=== PATIENT | female | born 1960 | race Caucasian/White ===

== ENCOUNTER 2018-04-24 01:05 | Observation (INO) ==
--- NOTE | 2018-04-24 01:35 | ERNOTE ---
Neuro HPI ER Record Presenting Symptoms: other - unresponsiveness Time Seen by Provider: 04/24/18 01:05 Source: EMS Exam Limitations: clinical condition Immunizations: IMMUNIZATION HX History of Influenza Vaccine More Information Required Hx Pneumococcal Vaccination More Information Required Allergies/Adverse Reactions: Allergies Allergy/AdvReac Type Severity Reaction Status Date / Time ibuprofen [From Advil] Allergy Verified 12/17/15 00:00 Penicillins Allergy Verified 12/17/15 00:00 Home Medications: HOME MEDICATIONS NK [No Home Medication] 03/29/15 [Last Taken Unknown] - History of Present Illness Narrative: Pt arrived by EMS with posturing and unresponsiveness. last seen normal 16:00 yesterday. Upon arrival pt was in somewhat of a position but I do not think it is posturing. She opens her eyes to verbal stimuli and will track visually but does not follow any commands. Onset: sudden onset, >3 hours - Character of Deficits Baseline Cognition: Present: alert, oriented x 4 Baseline Gait: Present: walks w/o assistance Associated Symptoms: Reports: altered mental status Review of Systems - Narrative Narrative: ROS unavailable due to pt's decreased mental status. She did deny pain by shaking her head. Medical History (Last Reviewed 04/24/18 @ 07:18 by Jorgito Milan DO) unknown past medical hx d/t condition Surgical History: Surgical History (Last Reviewed 04/24/18 @ 07:18 by Jorgito Milan DO) unknown past surgical hx d/t condition Family History: Family History (Last Reviewed 04/24/18 @ 07:18 by Jorgito Milan DO) Other Family history unobtainable Social History: Preferred Language Stateless Abuse History No History of abuse Psych History Hx of Suicide Attempt No Social History Section defined Physical Exam - Physical Exam General Appearance: Present: wd/wn, no apparent distress Head Exam: Present: normal inspection, no evidence of injury Eye Exam: Normal inspection: bilateral, PERRL: bilateral - left pupil is somewhat larger than the right but both are reactive, EOMI: bilateral - Pt does track visually but does not follow commands well Ears, Nose, Throat: Present: normal ENT inspection Neck: Present: normal inspection, nontender, supple Respiratory: Present: no respiratory distress, no accessory muscle use Cardiovascular/Chest: Present: tachycardia - mild 103 Gastrointestinal/Abdominal: Present: normal bowel sounds, nondistended, soft. Absent: guarding, rebound Extremity Exam: Present: no edema - very thin Neurological Exam: Present: other - unable to test due to pt not following commands Skin Exam: Present: normal color, warm/dry Lymphatic Exam: Present: no adenopathy [place] Coma Scale - Assess Eye Opening: To Voice Motor: Localizes to Pain Verbal: None - Total Coma Scale Total: 9 Progress - Results and Orders Patient's Lab Results:: I have reviewed the patient's lab results. - Vital Signs Patient's Vital Signs:: I have reviewed the patient's vital signs. - EKG EKG #1 EKG: NSR, premature ventricular contraction EKG read: Interp. by me - X-Ray X-Ray #1 X-Ray: chest Interpretation: Interp. by me X-ray Comments: no infiltrate or effusion, no pneumothorax - CT/Ultrasound CT/Ultrasound Narrative: CT Head, No acute intracranial change. - Progress/Reassessment Progress:: Improved Progress Note-Subjective: 04/24/18 03:13 reexamined the patient. She is still very lethargic but shakes her head when asked if she has pain. She did move her tongue in the midline when asked to stick it out but only got it just past her teeth. She did not firewood cutter my fingers with either hand. 04/24/18 07:[address] Dewitt around 05:20 she agreed with observation admission. Departure Clinical Impression: Acute alteration in mental status, Hyponatremia, Alcoholism - Departure Disposition: Still a patient Condition: Serious
[2018-04-24 01:42] LABS: Hematocrit 37.7 % (37.0-47.0); Hemoglobin 12.4 gm/dL (12.5-16.0); Mean Cell Volume 93.1 fl (78-100); Mean Corpuscular Hemoglobin 30.6 pg (27-31); Mean Corpuscular Hgb Conc 32.9 g/dl (32-36); Mean Platelet Volume 8.7 fl (8-12.5); Neutrophil # 2.6 K/mm3 (1.3-6.0); Neutrophil % 38.7 % (42-75.0); Platelet Count 322 K/mm3 (150-450); Red Blood Count 4.05 M/mm3 (4.2-5.4); Red Cell Distribution Width 15.5 % (11.5-14.0); White Blood Count 6.6 K/mm3 (4.0-10.5)
[2018-04-24 01:58] LABS: ALT 18 U/L (19-67); AST 26 U/L (0-48); Albumin * 3.9 gm/dl (3.4-5.0); Alkaline Phosphatase * 59 U/L (50-170); Anion Gap 15.3 mmol/L (6.8-13.8); BUN/Creatinine Ratio 15.7 (9.0-21.6); Bilirubin, Total 0.2 mg/dL (0.0-1.1); Blood Urea Nitrogen 17 mg/dL (3-23); Ca. Corrected For Albumin 8.6 mg/dL (8.4-10.2); Calcium * 8.8 mg/dL (7.9-10.9); Carbon Dioxide 25.3 mmol/L (24-32.6); Chloride 90 mmol/L (97-106); Glucose * 192 mg/dL (70-110); Potassium 3.6 mmol/L (3.4-4.6); Sodium 127 mmol/L (132-142); Total Protein 6.9 gm/dL (6.2-8.2)
[2018-04-24 02:36] LABS: Salicylate Less than 2.8 mg/dL (2.8-20.0)
[2018-04-24 03:17] LABS: Urine Bilirubin Negative (NEGATIVE); Urine Blood 50 /ul (NEGATIVE); Urine Ketone Negative (NEGATIVE); Urine Nitrite Negative (NEGATIVE); Urine Protein Negative (NEGATIVE); Urine Urobilinogen Normal (NORMAL)
[2018-04-24 03:24] LABS: Urine Appearance Clear (CLEAR); Urine Bacteria TRACE; Urine Color Pale Yellow; Urine RBC TRACE /hpf (0-5); Urine WBC None Seen /hpf (0-5)
[2018-04-24 03:30] LABS: Cocaine Ur Negative (NEGATIVE); Urine Barbiturate Negative (NEGATIVE); Urine Benzodiazepines Negative (NEGATIVE); Urine Opiates Negative (NEGATIVE); Urine PCP Negative (NEGATIVE); Urine THC Negative (NEGATIVE)
[2018-04-24] MEDS ORDERED: MULTIVIT INFUSN,ADULT 4,VIT K 10 ML, THIAMINE HCL 100 MG in DEXTROSE 5 % IN WATER 1,000 ML IV SCH ×3 (04:30)
--- NOTE | 2018-04-24 10:54 | HP ---
Chief Complaint - Chief Complaint Date of Service: 04/24/18 Time of Service: 10:29 Chief Complaint: unresponsiveness History of Present Illness: Patient with no significant past medical history was brought to the ED by EMS for unresponsiveness. She was curled up in position and not arousable. She had some low sodium on admission, 127, but otherwise no significant electrolyte abnormalities. ETOH positive at 128. She had some tachycardia, but blood pressure and respiratory rate were normal. Her mentation did not improve during her stay in the ED, and she was admitted for observation. No definite consolidation on chest x-ray, nothing acute on head CT, and UA did not show signs of infection. At the time of my evaluation, she was awake and alert, oriented x3. She reports being under increased stress lately due to divorce and losing her job, and was drinking yesterday. She states she does not normally drink. She denies ingestion of any other drugs. She feels shaky, but denies any other symptoms. She would like to go home later this afternoon. Medical History (Last Updated 04/24/18 @ 08:17 by Sujatha Mcmanus RN) No pertinent past medical history No significant past surgical history unknown past medical hx d/t condition Surgical History: Surgical History (Last Reviewed 04/24/18 @ 07:18 by Jorgito Milan DO) unknown past surgical hx d/t condition Family History: Family History (Last Reviewed 04/24/18 @ 07:18 by Jorgito Milan DO) Other Family history unobtainable Social History: Patient Lives/Resources Home Utilized Occupation [employer] Preferred Language German Do you have any zoroastrian or No cultural preference? Smoking Status Current every day smoker Have you smoked in the past 12 Yes months Do you dip or chew tobacco No Abuse History No History of abuse Psych History Hx of Suicide Attempt No Social History Section defined Review Of Systems (GEN) - Review of Systems Generalized/Overall Review: Absent: Fever Respiratory: Absent: Cough Cardiac: Absent: Chest Pain, Edema Abdominal: Absent: Nausea, Vomiting, Diarrhea Genitourinary: Absent: Burning Skin: Present: No Symptoms Reported Immunizations: IMMUNIZATION HX Immunizations Up to Date unknown History of Influenza Vaccine More Information Required Hx Pneumococcal Vaccination More Information Required Allergies/Adverse Reactions: Allergies Allergy/AdvReac Type Severity Reaction Status Date / Time ibuprofen [From Advil] Allergy Verified 12/17/15 00:00 Penicillins Allergy Verified 12/17/15 00:00 Home Medications: HOME MEDICATIONS NK 04/24/18 [Last Taken Unknown] Exam - Exam Vital Signs: Vital Signs - Last Taken Temp 36.5 C 04/24/18 07:41 Pulse 97 04/24/18 08:10 Resp 14 04/24/18 07:41 BP 114/65 04/24/18 07:41 Pulse Ox 97 04/24/18 07:41 Constitutional: Present: Alert, Oriented x3, Cooperative, No distress ENT Exam: Present: dry mucous membranes Eye Exam: right eye: other - esotropia, baseline per patient Respiratory: Present: normal breath sounds, no respiratory distress Cardiovascular/Chest: Present: regular rate, rhythm Abdomen: Present: Normal bowel sounds, soft, nontender Extremity: Absent: lower extremity edema Eye contact: Present: cooperative, good eye contact Diagnostic Studies: Abnormal Lab Results 04/24/18 04/24/18 04/24/18 Range/Units 01:40 01:40 03:03 RBC 4.05 L (4.2-5.4) M/mm3 Hgb 12.4 L (12.5-16.0) gm/dL RDW 15.5 H (11.5-14.0) % Neutrophils % 38.7 L (42-75.0) % Lymphocytes % 52.4 H (20-51) % Sodium 127 L (132-142) mmol/L Plasma Sodium 128 L (130-142) mmol/L Chloride 90 L (97-106) mmol/L Anion Gap 15.3 H (6.8-13.8) mmol/L Est GFR (Non-Af Amer) 56 L D (60-130) mL/min Random Glucose 192 H (70-110) mg/dL ALT 18 L (19-67) U/L Urine Glucose (UA) 250 H (NEGATIVE) mg/dL Urine Blood 50 H (NEGATIVE) /ul Salicylates Less than 2.8 L (2.8-20.0) mg/dL Acetaminophen Less than 0.2 L (10.0-30.0) mcg/mL Ethyl Alcohol 128.0 H (0.0-10.0) mg/dL Laboratory Results WBC 6.6 K/mm3 (4.0-10.5) 04/24/18 01:40 RBC 4.05 M/mm3 (4.2-5.4) L 04/24/18 01:40 Hgb 12.4 gm/dL (12.5-16.0) L 04/24/18 01:40 Hct 37.7 % (37.0-47.0) 04/24/18 01:40 MCV 93.1 fl (78-100) 04/24/18 01:40 MCH 30.6 pg (27-31) 04/24/18 01:40 MCHC 32.9 g/dl (32-36) 04/24/18 01:40 RDW 15.5 % (11.5-14.0) H 04/24/18 01:40 Plt Count 322 K/mm3 (150-450) 04/24/18 01:40 MPV 8.7 fl (8-12.5) 04/24/18 01:40 Immature Gran % (Auto) 0.30 % (0.001-0.429) 04/24/18 01:40 Immature Gran # (Auto) 0.02 K/mm3 (0.000-0.0310) 04/24/18 01:40 Neutrophils % 38.7 % (42-75.0) L 04/24/18 01:40 Lymphocytes % 52.4 % (20-51) H 04/24/18 01:40 Monocytes % 5.2 % (0.0-9) 04/24/18 01:40 Eosinophils % 2.6 % (0.0-3.0) 04/24/18 01:40 Basophils % 0.8 % (0.0-1.0) 04/24/18 01:40 Nucleated RBC % 0.0 k/mm3 (0-1) 04/24/18 01:40 Neutrophils # 2.6 K/mm3 (1.3-6.0) 04/24/18 01:40 Lymphocytes # 3.46 k/mm3 (1.5-3.5) 04/24/18 01:40 Monocytes # 0.3 k/mm3 (0.0-1.0) 04/24/18 01:40 Eosinophils # 0.2 k/mm3 (0.0-0.7) 04/24/18 01:40 Absolute Basophils 0.1 k/mm3 (0.0-0.1) 04/24/18 01:40 Sodium 127 mmol/L (132-142) L 04/24/18 01:40 Plasma Sodium 128 mmol/L (130-142) L 04/24/18 01:40 Potassium 3.6 mmol/L (3.4-4.6) 04/24/18 01:40 Chloride 90 mmol/L (97-106) L 04/24/18 01:40 Carbon Dioxide 25.3 mmol/L (24-32.6) 04/24/18 01:40 Anion Gap 15.3 mmol/L (6.8-13.8) H 04/24/18 01:40 BUN 17 mg/dL (3-23) 04/24/18 01:40 Creatinine 1.08 mg/dL (0.4-1.4) 04/24/18 01:40 Est GFR (Non-Af Amer) 56 mL/min (60-130) L D 04/24/18 01:40 BUN/Creatinine Ratio 15.7 (9.0-21.6) 04/24/18 01:40 Random Glucose 192 mg/dL (70-110) H 04/24/18 01:40 Calcium 8.8 mg/dL (7.9-10.9) 04/24/18 01:40 Calcium Adj for Albumin 8.6 mg/dL (8.4-10.2) 04/24/18 01:40 Total Bilirubin 0.2 mg/dL (0.0-1.1) 04/24/18 01:40 AST 26 U/L (0-48) 04/24/18 01:40 ALT 18 U/L (19-67) L 04/24/18 01:40 Alkaline Phosphatase 59 U/L (50-170) 04/24/18 01:40 Total Protein 6.9 gm/dL (6.2-8.2) 04/24/18 01:40 Albumin 3.9 gm/dl (3.4-5.0) 04/24/18 01:40 Urine Color Pale yellow 04/24/18 03:03 Urine Appearance Clear (CLEAR) 04/24/18 03:03 Urine pH 6.0 pH (5.0-7.0) 04/24/18 03:03 Ur Specific [place] 1.020 SP.GR. (1.005-1.010) 04/24/18 03:03 Urine Protein Negative mg/dL (NEGATIVE) 04/24/18 03:03 Urine Glucose (UA) 250 mg/dL (NEGATIVE) H 04/24/18 03:03 Urine Ketones Negative mg/dL (NEGATIVE) 04/24/18 03:03 Urine Blood 50 /ul (NEGATIVE) H 04/24/18 03:03 Urine Nitrate Negative (NEGATIVE) 04/24/18 03:03 Urine Bilirubin Negative mg/dl (NEGATIVE) 04/24/18 03:03 Urine Urobilinogen Normal EU/dl (NORMAL) 04/24/18 03:03 Ur Leukocyte Esterase Negative /ul (NEGATIVE) 04/24/18 03:03 Urine RBC Trace /hpf (0-5) 04/24/18 03:03 Urine WBC None seen /hpf (0-5) 04/24/18 03:03 Ur Epithelial Cells None seen /hpf (0-5) 04/24/18 03:03 Urine Bacteria Trace (NONE) 04/24/18 03:03 Urine Culture Comments Culture to follow 04/24/18 03:03 Ur Random Sodium 58 mmol/L (20-110) 04/24/18 03:03 Salicylates Less than 2.8 mg/dL (2.8-20.0) L 04/24/18 01:40 Urine Opiates Screen Negative (NEGATIVE) 04/24/18 03:03 Acetaminophen Less than 0.2 mcg/mL (10.0-30.0) L 04/24/18 01:40 Barbiturate Screen Negative (NEGATIVE) 04/24/18 03:03 Ur Phencyclidine Scrn Negative (NEGATIVE) 04/24/18 03:03 Urine Amphetamine Negative (NEGATIVE) 04/24/18 03:03 U Benzodiazepines Scrn Negative (NEGATIVE) 04/24/18 03:03 Urine Cocaine Screen Negative (NEGATIVE) 04/24/18 03:03 Urine Marijuana (THC) Negative (NEGATIVE) 04/24/18 03:03 Ethyl Alcohol 128.0 mg/dL (0.0-10.0) H 04/24/18 01:40 Assessment/Plan - Assessment/Plan (1) Alcohol intoxication Assessment: Patient reports drinking yesterday due to stress, which she does not normally do. Her altered mentation has resolved, and she is appropriate on my exam. Problem: Resolved (2) Acute alteration in mental status Assessment: Likely secondary to alcohol intoxication. She did have some mild hyponatremia of 127, however did not have other significant lab abnormalities. No recent medication changes, and she does not take medicines other than ibuprofen. Negative head CT, negative chest x-ray, and negative UTI. No signs of infection on exam. Altered mentation has resolved on my exam. Problem: Resolved (3) Hyponatremia Assessment: Sodium of 127 on admission, may be secondary to alcohol intake as she does not take medicines at baseline. She received a banana bag in the ER, and will recheck BMP this afternoon. If this has improved this afternoon, okay to DC today. Problem: Acute
[2018-04-24 13:22] LABS: Anion Gap 15.4 mmol/L (6.8-13.8); BUN/Creatinine Ratio 14.5 (9.0-21.6); Calcium * 8.6 mg/dL (7.9-10.9); Carbon Dioxide 25.3 mmol/L (24-32.6); Estimated Creat Clear 45.2; Potassium 4.7 mmol/L (3.4-4.6)
--- NOTE | 2018-04-24 14:02 | DS ---
(1) Acute alteration in mental status Problem: Resolved (2) Alcohol intoxication Problem: Resolved (3) Hyponatremia Problem: Acute Description of Stay: Patient with no significant past medical history was brought to the ED by EMS for unresponsiveness. She was curled up in position and not arousable. She had some low sodium at 127, but otherwise no significant electrolyte abnormalities. ETOH positive at 128. She had some tachycardia, but blood pressure and respiratory rate were normal. Her mentation did not improve during her stay in the ED, and she was admitted for observation. She was given a banana bag that run during her entire stay. No definite consolidation on chest x-ray, nothing acute on head CT, and UA did not show signs of infection. At the time of my initial H&P, she was awake and alert, oriented x3. She reports being under increased stress lately due to divorce and losing her job, and was drinking the day of admission. She states she does not normally drink. She had quit drinking in November 2017. She denies ingestion of any other drugs. She feels shaky, but denies any other symptoms. It was felt her AMS was due to alcohol intoxication. She felt comfortable leaving on the day of discharge. BMP ordered for 04/28/18 to check her sodium level. Procedures Performed: none Results and Findings: Lab Pending Results 04/24/18 01:40: WBC 6.6, RBC 4.05 L, Hgb 12.4 L, Hct 37.7, MCV 93.1, MCH 30.6, MCHC 32.9, RDW 15.5 H, Plt Count 322, MPV 8.7, Immature Gran % (Auto) 0.30, Immature Gran # (Auto) 0.02, Neutrophils % 38.7 L, Lymphocytes % 52.4 H, Monocytes % 5.2, Eosinophils % 2.6, Basophils % 0.8, Nucleated RBC % 0.0, Neutrophils # 2.6, Lymphocytes # 3.46, Monocytes # 0.3, Eosinophils # 0.2, Absolute Basophils 0.1 04/24/18 01:40: Sodium 127 L, Plasma Sodium 128 L, Potassium 3.6, Chloride 90 L, Carbon Dioxide 25.3, Anion Gap 15.3 H, BUN 17, Creatinine 1.08, Est GFR (Non-Af Amer) 56 L D, BUN/Creatinine Ratio 15.7, Random Glucose 192 H, Calcium 8.8, Calcium Adj for Albumin 8.6, Total Bilirubin 0.2, AST 26, ALT 18 L, Alkaline Phosphatase 59, Total Protein 6.9, Albumin 3.9, Salicylates Less than 2.8 L, Acetaminophen Less than 0.2 L, Ethyl Alcohol 128.0 H 04/24/18 03:03: Urine Color Pale yellow, Urine Appearance Clear, Urine pH 6.0, Ur Specific [place] 1.020, Urine Protein Negative, Urine Glucose (UA) 250 H, Urine Ketones Negative, Urine Blood 50 H, Urine Nitrate Negative, Urine Bilirubin Negative, Urine Urobilinogen Normal, Ur Leukocyte Esterase Negative, Urine RBC Trace, Urine WBC None seen, Ur Epithelial Cells None seen, Urine Bacteria Trace, Urine Culture Comments Culture to follow 04/24/18 03:03: Urine Opiates Screen Negative, Barbiturate Screen Negative, Ur Phencyclidine Scrn Negative, Urine Amphetamine Negative, U Benzodiazepines Scrn Negative, Urine Cocaine Screen Negative, Urine Marijuana (THC) Negative 04/24/18 03:03: Ur Random Sodium 58 04/24/18 13:14: Sodium 127 L, Plasma Sodium 128 L, Potassium 4.7 H D, Chloride 91 L, Carbon Dioxide 25.3, Anion Gap 15.4 H, BUN 16, Creatinine 1.10, Est GFR (Non-Af Amer) 55 L, BUN/Creatinine Ratio 14.5, Random Glucose 135 H, Calcium 8.6 Discharge Location: Home Disposition: Home self-care Condition: Good Discharge Activity: Activity as tolerated Discharge Diet: General/regular food Referrals: Meg Krueger MD [Primary Care Provider] - Complete Home Medications List: Complete Home Medication List: NK 04/24/18 Amb Orders for Discharge: Basic Metabolic Panel Time Frame: 04/28/18, Location: Laboratory
[2018-04-24 16:57] VITALS: BP 151/87
== END 2018-04-24 17:40 | disposition home or self-care (01) ==
LOC: ER 01:05 → MS 01:05
PROVIDERS: ADMIT Family Medicine; ATTEND Family Medicine
CPT/HCPCS: 36415; 70450; 71010; 71045; 80048; 80053; 80307; 80320; 80329; 81001; 83930; 84300; 85025; 87040; 87086; 93005; 96365; 96366; 99285; G0378; G0480; G0481

== ENCOUNTER 2018-06-17 16:09 | Inpatient (IN) ==
[2018-06-17] MEDS ORDERED: LORazepam 2 MG/ML DISP.SYRIN IV ONE (16:21)
--- NOTE | 2018-06-17 16:29 | ERNOTE ---
Medical Problem HPI - Narrative Date of Service: 06/17/18 - General Chief Complaint: General Assessment Time Seen by Provider: 06/17/18 16:20 Source: patient Exam Limitations: clinical condition - Immun/Allergies/Home Medications Immunizations: IMMUNIZATION HX Immunizations Up to Date Yes History of Influenza Vaccine No Hx Pneumococcal Vaccination No Allergies/Adverse Reactions: Allergies ibuprofen [From Advil] Allergy (Verified 06/17/18 16:20) Penicillins Allergy (Verified 06/17/18 16:20) Home Medications: HOME MEDICATIONS Acetaminophen [Tylenol] 1,000 mg PO HS PRN 06/17/18 [Last Taken Unknown] Acetaminophen/Diphenhydramine [Tylenol Pm Ex-Strength Caplet] 2 ea PO HS PRN 06/17/18 [Last Taken Unknown] Aspirin/Sod Bicarb/Citric Acid [[place] Es Tab Eff] 1 tab PO DAILY PRN 06/17/18 [Last Taken Unknown] Mv-Min/Iron/Folic/Calcium/Vitk [Women's Multivitamin Tablet] 1 ea PO DAILY 06/17/18 [Last Taken 06/15/18] Panax, [place] Ginsg/B12/Royl [Ginseng Complex Capsule] 1 cap PO DAILY 06/17/18 [Last Taken Unknown] Pyridoxine HCl (Vitamin B6) [B-6] 200 mg PO DAILY 06/17/18 [Last Taken Unknown] Ranitidine HCl [Zantac] 150 mg PO DAILY PRN 06/17/18 [Last Taken 06/15/18] - History of Present History Narrative: This patient is a 57-year-old female who arrived by ambulance because of dizziness at work. She is not able to describe her dizziness any further. She might be lightheaded. She says that she cannot breathe and is shaky. She had a similar episode last week at home that went away and she did not seek care. She denies fever, cough or cold symptoms. She has a frontal aching headache. She has vomited. She denies chest pain or palpitations. She denies being anxious. Review of Systems - Review of Systems Constitutional: Absent: fever EYE: Absent: blurred vision, double vision ENT: Absent: ear pain, nose congestion, nasal drainage, sore throat Respiratory: Present: shortness of breath. Absent: cough Cardiology: Absent: chest pain, palpitations, syncope Gastrointestinal/Abdominal: Present: vomiting. Absent: diarrhea, constipation, abdominal pain Genitourinary: Absent: frequency, pain, dysuria, hematuria Musculoskeletal: Absent: joint pain Skin: Absent: rash Neurological: Present: headache, dizziness/light-headedness. Absent: anxiety, depressed Endocrine: Absent: unexplained weight gain, unexplained weight loss Psych: Absent: anxiety, depressed Medical History (Last Reviewed 06/17/18 @ 16:26 by Bert Hawthorne MD) No pertinent past medical history No significant past surgical history unknown past medical hx d/t condition Surgical History: Surgical History (Last Reviewed 06/17/18 @ 16:26 by Bert Hawthorne MD) unknown past surgical hx d/t condition Family History: Family History (Last Reviewed 04/24/18 @ 07:18 by Jorgito Milan DO) Other Family history unobtainable Social History: Preferred Language Croatian Do you have any oriental orthodox or No cultural preference? Smoking Status Current every day smoker Have you smoked in the past 12 Yes months Do you dip or chew tobacco No Abuse History No History of abuse Psych History Hx of Suicide Attempt Alcohol Use heavy Drug Use none No Social History Section defined Physical Exam - Physical Exam General Appearance: Present: alert, anxious - She appears anxious and is shaking., thin Head Exam: Present: normal inspection, no evidence of injury, no tenderness w palpation Eye Exam: Other: bilateral - She has esotropia, otherwise normal. Ears, Nose, Throat: Present: normal ENT inspection, normal pharynx Neck: Present: normal inspection, nontender. Absent: lymphadenopathy (R), lymphadenopathy (L) Respiratory: Present: normal breath sounds, no accessory muscle use, chest nontender, lungs clear. Absent: no respiratory distress - Tachypneic Cardiovascular/Chest: Present: no murmur, tachycardia Gastrointestinal/Abdominal: Present: normal bowel sounds, nontender, nondistended, soft, no organomegaly Back Exam: Present: normal inspection Extremity Exam: Present: normal inspection, non-tender, normal range of motion, no edema Neurological Exam: Present: alert, no motor/sensory deficits. Absent: normal mood/affect - Anxious appearing Skin Exam: Present: normal color, warm/dry Progress - Date and Time Seen: Date and Time: I had to speak with Dr. Landis about another patient. The patient is currently an x-ray. Some of her labs were back and showed a sodium of 120. Dr. Landis agreed to admit the patient. - Results and Orders Patient's Lab Results:: I have reviewed the patient's lab results. Results and Orders: Laboratory Tests 06/17/18 06/17/18 06/17/18 16:35 16:35 16:50 WBC 3.8 L Hgb 11.6 L Hct 33.1 L Plt Count 182 Immature Gran % (Auto) 0.30 Neutrophils % 80.7 H Lymphocytes % 13.2 L Monocytes % 4.5 Eosinophils % 0.8 Basophils % 0.5 pCO2 32.1 pO2 76.9 L HCO3 24.5 Total CO2 25.5 H Base Excess 1.8 ABG pH 7.50 H ABG O2 Sat (Measured) 96.5 Sodium 120 L D Plasma Sodium 120 L Potassium 4.1 Chloride 83 L Carbon Dioxide 25.2 Anion Gap 15.9 H BUN 32 H D Creatinine 1.56 H D Est GFR (Non-Af Amer) 36 L D BUN/Creatinine Ratio 20.5 Random Glucose 108 Calcium 8.7 Calcium Adj for Albumin 8.5 Total Bilirubin 2.0 H AST 9291 H ALT 9463 H Alkaline Phosphatase 99 Troponin I Less than 0.017 Total Protein 6.7 Albumin 3.8 - Vital Signs Patient's Vital Signs:: I have reviewed the patient's vital signs. Vital Signs: Vital Signs 06/17/18 16:16 Temperature 37.8 C Pulse Rate 106 H Respiratory Rate 28 H Blood Pressure 128/77 O2 Sat by Pulse Oximetry 98 - EKG EKG #1 EKG read: Interp. by me EKG Comments: Normal sinus rhythm Rate [address] or T-wave changes Compared to an EKG dated 04/24/18 there was a lot of artifact on the previous EKG, but no obvious significant changes - X-Ray X-Ray #1 X-Ray: chest Interpretation: Reviewed by me X-ray Comments: Chest PA Lateral * INDICATION: dyspnea. COMPARISON STUDY: Chest radiograph dated 04/24/2018. FINDINGS: Lungs: Normal lung volumes. No focal consolidation. Normal pulmonary vasculature. Pleura: No pleural effusion or pneumothorax. Heart and Mediastinum: The cardiomediastinal silhouette is stable. Skeletal Structures and Soft Tissues: No acute osseous abnormality. IMPRESSION: No acute cardiopulmonary process. Electronically signed by Krystin Almodovar D.O.. - CT/Ultrasound CT/Ultrasound Narrative: CT Head W/O * Date: 06/17/2018 4:21 PM Clinical Indication: Headache Comparison: Head CT dated 04/24/2018. Technique: 5 mm axial tomographic images were obtained of the head without contrast. These were viewed on brain and bone windows. Individualized dose optimization technique was used for the performed procedure including automated exposure control, adjustment of the mA and/or kV according to patient size and/or the iterative reconstruction technique. Findings: The brain parenchyma is normal in attenuation. No intra- or extra-axial mass or fluid collection. No acute hemorrhage. The ventricles are normal in size, shape, and morphology. The lao-white matter junction is normal. The basilar cisterns are patent. Small air-fluid level in the left maxillary sinus. The visualized portions of the orbits and globes are normal. The mastoid air cells are clear. No aggressive osseous lesion or fracture. Impression: No acute intracranial process. Small air-fluid level in the left maxillary sinus which can be seen with acute sinusitis. Electronically signed by Krystin Almodovar D.O.. - Progress/Reassessment Chief Complaint: General Assessment Departure Clinical Impression: Hyponatremia, Hyperventilation, Elevated LFTs - Departure Disposition: Still a patient Condition: Stable
[2018-06-17 16:39] LABS: Hematocrit 33.1 % (37.0-47.0); Hemoglobin 11.6 gm/dL (12.5-16.0); Mean Cell Volume 89.7 fl (78-100); Mean Corpuscular Hemoglobin 31.4 pg (27-31); Mean Platelet Volume 8.9 fl (8-12.5); Neutrophil # 3.1 K/mm3 (1.3-6.0); Neutrophil % 80.7 % (42-75.0); Platelet Count 182 K/mm3 (150-450); Red Blood Count 3.69 M/mm3 (4.2-5.4); Red Cell Distribution Width 12.4 % (11.5-14.0); White Blood Count 3.8 K/mm3 (4.0-10.5)
[2018-06-17 16:57] LABS: Albumin * 3.8 gm/dl (3.4-5.0); Alkaline Phosphatase * 99 U/L (50-170); Anion Gap 15.9 mmol/L (6.8-13.8); BUN/Creatinine Ratio 20.5 (9.0-21.6); Blood Urea Nitrogen 32 mg/dL (3-23); Ca. Corrected For Albumin 8.5 mg/dL (8.4-10.2); Calcium * 8.7 mg/dL (7.9-10.9); Carbon Dioxide 25.2 mmol/L (24-32.6); Chloride 83 mmol/L (97-106); Glucose * 108 mg/dL (70-110); Potassium 4.1 mmol/L (3.4-4.6); Total Protein 6.7 gm/dL (6.2-8.2); Troponin I Less than 0.017 ng/mL (0.00-0.10)
[2018-06-17 17:00] LABS: Sodium 120 mmol/L (132-142)
[2018-06-17] MEDS ORDERED: LORazepam 2 MG/ML DISP.SYRIN ONE (17:24)
[2018-06-17] MEDS ORDERED: NORMAL SALINE 1,000 ML IV ONE (18:05)
[2018-06-17 18:17] LABS: AST 9291 U/L (0-48)
[2018-06-17 18:26] LABS: ALT 9463 U/L (19-67)
[2018-06-18] MEDS: NORMAL SALINE 1,000 ML IV PRN ×3 (00:41→17:35)
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
[2018-06-18 01:38] LABS: Acetaminophen * 1.6 mcg/mL (10.0-30.0); Albumin * 3.2 gm/dl (3.4-5.0); Anion Gap 12.3 mmol/L (6.8-13.8); BUN/Creatinine Ratio 25.8 (9.0-21.6); Bilirubin, Total 1.9 mg/dL (0.0-1.1); Ca. Corrected For Albumin 8.7 mg/dL (8.4-10.2); Calcium * 8.4 mg/dL (7.9-10.9); Carbon Dioxide 26.3 mmol/L (24-32.6); Potassium 3.6 mmol/L (3.4-4.6); Total Protein 5.8 gm/dL (6.2-8.2)
[2018-06-18] MEDS: MULTIVITAMIN/IRON/FOLIC ACID 1 TAB TABLET PO SCH (08:32)
[2018-06-18 10:24] LABS: Hematocrit 31.5 % (37.0-47.0); Mean Cell Volume 92.1 fl (78-100); Mean Corpuscular Hemoglobin 32.2 pg (27-31); Mean Corpuscular Hgb Conc 34.9 g/dl (32-36); Mean Platelet Volume 8.7 fl (8-12.5); Neutrophil # 1.5 K/mm3 (1.3-6.0); Platelet Count 160 K/mm3 (150-450); Red Blood Count 3.42 M/mm3 (4.2-5.4); Red Cell Distribution Width 12.8 % (11.5-14.0); White Blood Count 2.4 K/mm3 (4.0-10.5)
[2018-06-18 10:41] LABS: Albumin * 3.2 gm/dl (3.4-5.0); BUN/Creatinine Ratio 22.1 (9.0-21.6); Bilirubin, Total 1.6 mg/dL (0.0-1.1); Ca. Corrected For Albumin 8.7 mg/dL (8.4-10.2); Calcium * 8.4 mg/dL (7.9-10.9); Carbon Dioxide 26.8 mmol/L (24-32.6); Potassium 3.8 mmol/L (3.4-4.6); Total Protein 5.8 gm/dL (6.2-8.2)
[2018-06-18] MEDS ORDERED: DIATRIZOATE MEGLUMINE, SODIUM 30 ML BTL PO ONE (13:07)
[2018-06-19] MEDS: NORMAL SALINE 1,000 ML IV PRN (01:42)
[2018-06-19 08:55] LABS: Hemoglobin 10.8 gm/dL (12.5-16.0); Mean Cell Volume 93.6 fl (78-100); Mean Corpuscular Hemoglobin 31.6 pg (27-31); Mean Corpuscular Hgb Conc 33.8 g/dl (32-36); Mean Platelet Volume 9.5 fl (8-12.5); Platelet Count 177 K/mm3 (150-450); Red Blood Count 3.42 M/mm3 (4.2-5.4); Red Cell Distribution Width 13.2 % (11.5-14.0); White Blood Count 3.2 K/mm3 (4.0-10.5)
[2018-06-19] MEDS: MULTIVITAMIN/IRON/FOLIC ACID 1 TAB TABLET PO SCH (09:05)
[2018-06-19 09:06] LABS: Albumin * 3.2 gm/dl (3.4-5.0); Anion Gap 12.4 mmol/L (6.8-13.8); BUN/Creatinine Ratio 10.3 (9.0-21.6); Bilirubin, Total 1.5 mg/dL (0.0-1.1); Ca. Corrected For Albumin 8.4 mg/dL (8.4-10.2); Calcium * 8.1 mg/dL (7.9-10.9); Carbon Dioxide 24.9 mmol/L (24-32.6); Potassium 3.3 mmol/L (3.4-4.6); Total Protein 5.9 gm/dL (6.2-8.2)
--- NOTE | 2018-06-19 10:43 | DS ---
(1) Hyponatremia Problem: Acute (2) Elevated LFTs Problem: Acute Description of Stay: Janelle is a 57 yo female that was admitted for hyponatremia with dizziness and severely elevated liver enzymes of >9000. She was started on IV fluids as her history was suspicious for hypovolemic hyponatremia. Liver was evaluated with US, hepatitis panel, iron, and enzymes were monitored. Janelle was asymptomatic other than dizziness. She had no abdominal pain and no jaundice. Sodium was monitored and corrected with fluid. Her dizziness resolved. She feels normal. She denies any risk factors for hepatitis, labs are still pending. Iron was normal. Imaging showed a benign cyst but no evidence of obstruction. Cyst was previously seen on CT about 4 years ago and is stable and not likely related to elevated liver enzymes. With fluid and time enzymes have improved and are down near 2000. As she is asymptomatic and imaging is normal I will discharge her to home today. She will follow up with Dr. Krueger to recheck labs in a week. Procedures Performed: none Results and Findings: Lab Pending Results 06/17/18 16:35: WBC 3.8 L, RBC 3.69 L, Hgb 11.6 L, Hct 33.1 L, MCV 89.7, MCH 31.4 H, MCHC 35.0, RDW 12.4, Plt Count 182, MPV 8.9, Immature Gran % (Auto) 0.30, Immature Gran # (Auto) 0.01, Neutrophils % 80.7 H, Lymphocytes % 13.2 L, Monocytes % 4.5, Eosinophils % 0.8, Basophils % 0.5, Nucleated RBC % 0.0, Neutrophils # 3.1, Lymphocytes # 0.50 L, Monocytes # 0.2, Eosinophils # 0.0, Absolute Basophils 0.0 06/17/18 16:35: Sodium 120 L D, Plasma Sodium 120 L, Potassium 4.1, Chloride 83 L, Carbon Dioxide 25.2, Anion Gap 15.9 H, BUN 32 H D, Creatinine 1.56 H D, Est GFR (Non-Af Amer) 36 L D, BUN/Creatinine Ratio 20.5, Random Glucose 108, Calcium 8.7, Calcium Adj for Albumin 8.5, Total Bilirubin 2.0 H, AST 9291 H, ALT 9463 H, Alkaline Phosphatase 99, Troponin I Less than 0.017, Total Protein 6.7, Albumin 3.8 06/17/18 16:50: pCO2 32.1, pO2 76.9 L, HCO3 24.5, Total CO2 25.5 H, Base Excess 1.8, ABG pH 7.50 H, ABG O2 Sat (Measured) 96.5 06/18/18 00:57: Sodium 131 L, Plasma Sodium 131, Potassium 3.6, Chloride 96 L, Carbon Dioxide 26.3, Anion Gap 12.3, BUN 24 H, Creatinine 0.93, Est GFR (Non-Af Amer) 66 D, BUN/Creatinine Ratio 25.8 H, Random Glucose 78, Calcium 8.4, Calcium Adj for Albumin 8.7, Total Bilirubin 1.9 H, AST 3754 H, ALT 4870 H, Alkaline Phosphatase 91, Total Protein 5.8 L, Albumin 3.2 L, Acetaminophen 1.6 L 06/18/18 10:15: WBC 2.4 L D, RBC 3.42 L, Hgb 11.0 L, Hct 31.5 L, MCV 92.1, MCH 32.2 H, MCHC 34.9, RDW 12.8, Plt Count 160, MPV 8.7, Immature Gran % (Auto) 0.00 L, Immature Gran # (Auto) 0.00, Neutrophils % 61.0, Lymphocytes % 23.2, Monocytes % 7.1, Eosinophils % 8.3 H, Basophils % 0.4, Nucleated RBC % 0.0, Neutrophils # 1.5, Lymphocytes # 0.56 L, Monocytes # 0.2, Eosinophils # 0.2, Absolute Basophils 0.0 06/18/18 10:15: Sodium 137, Plasma Sodium 137, Potassium 3.8, Chloride 101, Carbon Dioxide 26.8, Anion Gap 13.0, BUN 17, Creatinine 0.77, Est GFR (Non-Af Amer) 82 D, BUN/Creatinine Ratio 22.1 H, Random Glucose 75, Calcium 8.4, Calciu m Adj for Albumin 8.7, Iron 86, Total Bilirubin 1.6 H, AST 2565 H, ALT 4301 H, Alkaline Phosphatase 85, Total Protein 5.8 L, Albumin 3.2 L 06/19/18 08:36: WBC 3.2 L D, RBC 3.42 L, Hgb 10.8 L, Hct 32.0 L, MCV 93.6, MCH 31.6 H, MCHC 33.8, RDW 13.2, Plt Count 177, MPV 9.5, Immature Gran % (Auto) 0.30, Immature Gran # (Auto) 0.01, Neutrophils % 62.0, Lymphocytes % 22.2, Monocytes % 9.8 H, Eosinophils % 4.4 H, Basophils % 1.3 H, Nucleated RBC % 0.0, Neutrophils # 2.0, Lymphocytes # 0.70 L, Monocytes # 0.3, Eosinophils # 0.1, Absolute Basophils 0.0 06/19/18 08:36: Sodium 136, Plasma Sodium 137, Potassium 3.3 L, Chloride 102, Carbon Dioxide 24.9, Anion Gap 12.4, BUN 7 D, Creatinine 0.68, Est GFR (Non-Af Amer) 95, BUN/Creatinine Ratio 10.3, Random Glucose 154 H D, Calcium 8.1, Calcium Adj for Albumin 8.4, Total Bilirubin 1.5 H, AST 1021 H, ALT 2998 H, Alkaline Phosphatase 86, Total Protein 5.9 L, Albumin 3.2 L Discharge Location: Home Disposition: Home self-care Condition: Stable Discharge Activity: Activity as tolerated Discharge Diet: General/regular food Referrals: Meg Krueger MD [Primary Care Provider] - One Week Problem Oriented Discharge Instructions to Patient/Family: Hyponatremia, [id number] Complete Home Medications List: Complete Home Medication List: Aspirin/Sod Bicarb/Citric Acid [Faith-[place] Es Tab Eff] 1 tab PO DAILY PRN 06/17/18 Mv-Min/Iron/Folic/Calcium/Vitk [Women's Multivitamin Tablet] 1 ea PO DAILY 06/17/18 Panax, Citizen Of [place] Ginsg/B12/Royl [Ginseng Complex Capsule] 1 cap PO DAILY 06/17/18 Pyridoxine HCl (Vitamin B6) [B-6] 200 mg PO DAILY 06/17/18 Ranitidine HCl [Zantac] 150 mg PO DAILY PRN 06/17/18
[2018-06-19 12:14] VITALS: BP 107/76
[2018-06-19 13:13] LABS: Hepatitis C Antibody NON-REACTIVE (NON-REACTIVE); Hepatitis Panel Confirmation DNR
[2018-06-20 01:05] LABS: Hepatitis A IgM Antibody NON-REACTIVE (NON-REACTIVE); Hepatitis B Surface Antigen NON-REACTIVE (NON-REACTIVE)
== END 2018-06-19 11:40 | disposition home or self-care (01) | DRG 641 ==
LOC: ER 16:09 → MS 16:09
PROVIDERS: ADMIT Family Medicine; ATTEND Family Medicine
CPT/HCPCS: 36415; 36600; 70450; 71010; 71020; 71045; 71046; 74178; 76700; 80053; 80074; 80329; 82803; 83540; 84484; 85025; 93005; 96361; 96374; 99285; G0480; Q9967